=== PATIENT | male | born 1995 | race Caucasian/White ===

== ENCOUNTER 2022-01-23 12:06 | Emergency (ER) | payer SELFPAY ==
[~2022-01-23] VITALS: Ht 154.9 cm; Wt 78.9 kg
[2022-01-23 12:41] VITALS: BP 133/74
--- NOTE | 2022-01-23 13:29 | NUR ---
LONG ALUMINUM FINGER SPLINT APPLIED TO R PINKY
--- NOTE | 2022-01-23 13:43 | NUR ---
Patient discharged with v/s stable. Written and verbal after care instructions ABOUT FINGER SPRAIN given and explained. Patient verbalized understanding. Ambulatory with steady gait. All questions addressed prior to discharge. Advised to follow up with PMD.
== END 2022-01-23 13:43 | disposition home or self-care (01) ==
LOC: MED 12:06
DX: S63.616A Unspecified sprain of right little finger, initial encounter (principal); X58.XXXA Exposure to other specified factors, initial encounter; Y93.89 Activity, other specified; Y92.89 Other specified places as the place of occurrence of the external cause; Y99.8 Other external cause status
CPT/HCPCS: 29130; 73140; 99283; Q0092

== ENCOUNTER 2022-05-18 11:47 | Emergency (ER) | payer OTHER ==
[~2022-05-18] VITALS: Ht 162.6 cm; Wt 85.5 kg
[2022-05-18 12:07] VITALS: BP 163/78
[2022-05-18] MEDS ORDERED: IBUP-2213 PO (13:23)
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
--- NOTE | 2022-05-18 13:48 | NUR ---
Patient discharged with v/s stable. Written and verbal after care instructions ABOUT CONTUSION given and explained. Patient alert, oriented and verbalized understanding of instructions. Ambulatory with steady gait. All questions addressed prior to discharge. ID band removed. Patient advised to follow up with PMD. Rx of MOTRIN given. Patient educated on indication of medication including possible reaction and side effects. Opportunity to ask questions provided and answered.
== END 2022-05-18 13:48 | disposition home or self-care (01) ==
LOC: MED 11:47
DX: S90.112A Contusion of left great toe without damage to nail, initial encounter (principal); X58.XXXA Exposure to other specified factors, initial encounter; Y93.89 Activity, other specified; Y92.89 Other specified places as the place of occurrence of the external cause; Y99.8 Other external cause status
CPT/HCPCS: 73630; 99283